=== PATIENT | female | born 1985 | race American Indian/Alaskan Native ===

== ENCOUNTER 2020-02-25 13:30 | Emergency (ER) | payer SELFPAY ==
[2020-02-25 14:26] VITALS: BP 155/103
[2020-02-25] MEDS ORDERED: METOCLOPRAMIDE 10 MG TAB PO ONE (14:37)
[2020-02-25] MEDS ORDERED: SUMAtriptan SUCCINATE 50 MG TAB PO ONE (14:37)
[2020-02-25] MEDS ORDERED: diphenhydrAMINE 25 MG CAP PO ONE (14:37)
--- NOTE | 2020-02-25 14:40 | Emergency Department Report ---
ED Headache HPI - General Chief Complaint: Headache Stated Complaint: HEADACHE Time Seen by Provider: 02/25/20 14:37 - History of Present Illness Initial Comments: Patient is a 34-year-old female presents emergency room complaints of a right temporal headache that began a week and a half ago. She states that she has been taking Excedrin Migraine and Goody's powder with some relief but the headache returns. She states that she has been having intermittent headaches for approximately 6 months. She states that her headache feels similar to her headaches in the past. She denies any nausea, vomiting, diarrhea, fever, vision changes, numbness, weakness, neck stiffness. No past medical history. Allergy to latex. Last menstrual cycle 02/08/2020. She has not seen anyone for her headaches. She states that sounds and lights make her headache worse. Allergies/Adverse Reactions: Allergies latex Adverse Reaction (Verified 03/08/13 09:18) Rash Home Medications: Ambulatory Orders Promethazine [Phenergan] 25 mg PO Q6H PRN #14 tablet 03/08/13 Fluconazole [Diflucan] 150 mg PO QDAY #2 tablet 08/06/13 Acetaminophen/Codeine [Acetaminophen-Codeine #3 TAB] 1 tab PO Q6H PRN #14 tab 03/22/14 Ondansetron [Zofran Odt] 4 mg PO Q6H #14 tab.rapdis 03/22/14 SUMAtriptan SUCCINATE [Imitrex] 25 mg PO BID PRN #12 tab 02/25/20 ED Review of Systems ROS: Stated complaint: HEADACHE Other details as noted in HPI Comment: All other systems reviewed and negative ED Past Medical Hx - Past Medical History Previous Medical History?: Yes Hx Hypertension: Yes (during ) - Surgical History Past Surgical History?: No - Social History Smoking Status: Never Smoker Substance Use Type: Alcohol, Marijuana - Medications Home Medications: Home Medications Medication Instructions Recorded Confirmed Last Taken Type Promethazine [Phenergan] 25 mg PO Q6H PRN #14 tablet 03/08/13 Unknown Rx Fluconazole [Diflucan] 150 mg PO QDAY #2 tablet 08/06/13 Unknown Rx Acetaminophen/Codeine 1 tab PO Q6H PRN #14 tab 03/22/14 Unknown Rx [Acetaminophen-Codeine #3 TAB] Ondansetron [Zofran Odt] 4 mg PO Q6H #14 tab.rapdis 03/22/14 Unknown Rx SUMAtriptan SUCCINATE [Imitrex] 25 mg PO BID PRN #12 tab 02/25/20 Unknown Rx ED Physical Exam - General Limitations: No Limitations General appearance: alert, in no apparent distress - Head Head exam: Present: atraumatic, normocephalic - Eye Eye exam: Present: normal appearance, PERRL, EOMI. Absent: scleral icterus, conjunctival injection, nystagmus, periorbital swelling, periorbital tenderness Pupils: Present: normal accommodation - ENT ENT exam: Present: mucous membranes moist - Neck Neck exam: Present: full ROM. Absent: meningismus - Respiratory Respiratory exam: Present: normal lung sounds bilaterally. Absent: respiratory distress, wheezes, rales, rhonchi, stridor, chest wall tenderness, accessory muscle use, decreased breath sounds, prolonged expiratory - Cardiovascular Cardiovascular Exam: Present: regular rate, normal rhythm, normal heart sounds. Absent: systolic murmur, diastolic murmur, rubs, gallop - Neurological Exam Neurological exam: Present: alert, oriented X3, CN II-XII intact, normal gait, other (normal finger to nose, normal heel to cantu, 5/5 muscle strength in the BUE/BLE, sensation intact throughout, no pronator drift, no facial asymmetry, no focal neuro deficit). Absent: motor sensory deficit - Psychiatric Psychiatric exam: Present: normal affect, normal mood - Skin Skin exam: Present: warm, dry, intact ED Course Vital Signs 02/25/20 14:25 Temperature 98.0 F Pulse Rate 99 H Respiratory 18 Rate Blood Pressure 155/103 [Right] O2 Sat by Pulse 99 Oximetry ED Medical Decision Making - Medical Decision Making Patient is a 34-year-old female presents emergency room complaints of a right temporal headache that began a week and a half ago. She states that she has been taking Excedrin Migraine and Goody's powder with some relief but the headache returns. She states that she has been having intermittent headaches for approximately 6 months. She states that her headache feels similar to her headaches in the past. She denies any nausea, vomiting, diarrhea, fever, vision changes, numbness, weakness, neck stiffness. No past medical history. Allergy to latex. Last menstrual cycle 02/08/2020. She has not seen anyone for her headaches. She states that sounds and lights make her headache worse. VSS. No neurological deficits on exam, no meningeal signs. Patient given medications while in the emergency department and symptoms improved. Symptoms appear most consistent with migraine headache. Patient be referred to neurology given frequent headaches. Patient given prescription for Imitrex. Advised patient Please take medication as prescribed as needed. Increase your water intake. follow-up with a primary care doctor. Follow-up with a neurologist. Return to emergency room for any new or worsening symptoms. - Differential Diagnosis Cluster headache, tension headache, migraine headache, sinusitis, HTN Critical care attestation.: If time is entered above; I have spent that time in minutes in the direct care of this critically ill patient, excluding procedure time. ED Disposition Clinical Impression: Headache Qualifiers: Headache type: unspecified Headache chronicity pattern: acute headache Intract ability: not intractable Qualified Code(s): R51.9 - Headache, unspecified Disposition: DC-01 TO HOME OR SELFCARE Is pt being admited?: No Does the pt Need Aspirin: No Condition: Stable Instructions: Migraine Headache, [id number] Additional Instructions: Please take medication as prescribed as needed. Increase your water intake. follow-up with a primary care doctor. Follow-up with a neurologist. Return to emergency room for any new or worsening symptoms. Prescriptions: SUMAtriptan SUCCINATE [Imitrex] 25 mg PO BID PRN #12 tab PRN Reason: headache Referrals: LEOLA BAEZ MD [Staff Physician] - 3-5 Days [facility] [Provider Group] - 3-5 Days [facility], [LAB/CONTRACT] - 3-5 Days HEMANTH AGUIAR MD [Referring] - 3-5 Days Time of Disposition: 15:46 Print Language: POLISH
[2020-02-25] MEDS ORDERED: KETOROLAC 60 MG/2 ML INJ IM ONE (15:50)
== END 2020-02-25 16:13 | disposition home or self-care (01) ==
LOC: ED 13:30
DX: R51.9 Headache, unspecified (principal); I10 Essential (primary) hypertension; F12.10 Cannabis abuse, uncomplicated; Z79.899 Other long term (current) drug therapy; Z91.040 Latex allergy status
CPT/HCPCS: 96372; 99282; J1885